=== PATIENT | male | born 1995 | race Caucasian/White ===

== ENCOUNTER 2018-02-13 19:42 | Emergency (ER) | payer SELFPAY ==
[~2018-02-13 19:42] MED LIST: CLIN300C99 PO; FAMO20TA28 PO; MAG-66 PO; TRAM-420 PO
[2018-02-13 19:45] VITALS: BP 118/75
[2018-02-13] MEDS ORDERED: ALB6.7R INH (19:48)
--- NOTE | 2018-02-13 19:48 | ER Report ---
History and Physical Time Seen By MD: 19:48 Hx. of Stated Complaint: LOWER LEFT TOOTH PAIN FOR A MONTH. NO INSURANCE FOR A DENTIST YET. LAST TYLENOL WAS TAKEN A COUPLE DAYS AGO HPI/ROS CHIEF COMPLAINT: Dental pain HISTORY OF PRESENT ILLNESS: This is a 23-year-old male who presents to the emergency department with dental pain. Patient states that over the last month he's had left lower molar dental pain. Patient states progressively getting worse, starting to feel pressure in his lower jaw, no fevers or chills. No nausea or vomiting. No difficulties with speech. The patient also states that he thinks he may have an STD, is requesting treatment and testing. States he was exposed to gonorrhea and/or Chlamydia. No penile discharge. REVIEW OF SYSTEMS: Respiratory: No cough, no dyspnea. Cardiovascular: No chest pain, no palpitations. Gastrointestinal: No vomiting, no abdominal pain. Musculoskeletal: No back pain. Dental: As above. Allergies: Coded Allergies: Penicillins (Verified Allergy, Intermediate, Rash, 02/13/18) Home Meds Active Scripts Amoxicillin/Pot Clav 875-125 Mg Tab (AUGMENTIN 875-125 TABLET) 1 Each Tablet, 1 TAB PO Q12H for 7 Days, #13 TAB Prov:DARLENE US CLIN NURSE-BC 02/13/18 Reported Medications Albuterol Sulfate (PROVENTIL HFA) 6.7 Gm Inh, 1-2 PUFF INH 3-4XD, INH 02/13/18 Discontinued Scripts Mag Hydrox/Al Hydrox/Simeth (MAALOX MAXIMUM STRENGTH SUSP) 355 Ml Oral.susp, 30 ML PO 1-3XD PRN for chest pain for 10 Days, #120 ML Prov:MARIA M PARRA MD 01/20/17 Famotidine (PEPCID) 20 Mg Tablet, 20 MG PO 1-2XD PRN for chest pain for 7 Days, #30 TAB Prov:MARIA M PARRA MD 01/20/17 Clindamycin Hcl (CLINDAMYCIN HCL) 300 Mg Capsule, 300 MG PO TID for infection, #30 CAPSULE TAKE 1 CAPSULE EVERY SIX HOURS Prov:JASKARAN GALVIN DO 01/15/17 Tramadol Hcl (TRAMADOL HCL) 50 Mg Tablet, 1 TAB PO Q6H PRN for PAIN, #12 MG TAKE ONE TO TWO TABLETS BY MOUTH EVERY FOUR TO SIX HOURS NEEDED Prov:JASKARAN GALVIN DO 01/15/17 Past Medical/Surgical History The patient has a past medical and surgical history of multiple dental caries, poor dentition, wears glasses, asthma, pancreatitis. Reviewed Nurses Notes: Yes Smoking Status: Current: Every Day Smoker Hx Substance Use Disorder: No Hx Alcohol Use: No Constitutional Vital Sign - Last 24 Hours 02/13/18 19:45 Temp 97.8 Pulse 78 Resp 14 B/P (MAP) 118/75 Pulse Ox 95 O2 Delivery Room Air Physical Exam General Appearance: The patient is alert, has no immediate need for airway protection and no current signs of toxicity. Eyes: Pupils equal and round no injection. Dental: Multiple dental caries, poor dentition throughout, multiple caps and fillings, several missing teeth on upper and lower. The left lower molar does have a filling however on the outside there is what appears to be a partially broken tooth for a tooth with severe erosion of the tooth. Mild erythema to the gumline no abscess noted. Gingivitis throughout. Respiratory: Chest is non tender, lungs are clear to auscultation. Cardiac: regular rate and rhythm. Gastrointestinal: Abdomen is soft and non tender, no masses, bowel sounds normal. Musculoskeletal: Neck: Neck is supple and non tender. Extremities have full range of motion and are non tender. Skin: No rashes or lesions. DIFFERENTIAL DIAGNOSIS: After history and physical exam differential diagnosis was considered for dental abscess, dental caries, tumor and gingivitis. Medical Decision Making Data Points Laboratory Hematology Test 02/13/18 20:15 Chemistry Test 02/13/18 20:15 ED Course/Re-evaluation ED Course The patient was admitted to a room. A history and physical were obtained. Differential diagnoses were considered. After examination the patient I did offer the patient and injection into the affected area to see if this would eliminate some of his discomfort, the patient is in agreement with this. I did a mental/incisive nerve block using approximately 0.5cc of lidocaine and bupivacaine mixture. Patient did have significant pain relief. I did tell the patient he must follow up with a dentist for definitive care and treatment of the tooth. Patient was given a sheet with the local dentists. The patient states the "allergy" he had to the penicillin was a small rash on his belly while in [facility], he has had Augmentin and Rocephin before without any reaction. The patient was given 250mg IM injection of Rocephin, 1g of Azithromycin and started on Augmentin. the patient was discharged home, had no other questions or concerns at this time. Decision to Disposition Date: Feb 13, 2018 Decision to Disposition Time: 20:35 Depart Departure Latest Vital Signs Vital Signs Date Time Temp Pulse Resp B/P (MAP) Pulse Ox O2 Delivery O2 Flow Rate FiO2 02/13/18 19:45 97.8 78 14 118/75 95 Room Air Impression: Primary Impression: Pain, dental Additional Impression: Exposure to sexually transmitted disease (STD) Condition: Improved Disposition: HOME OR SELF-CARE New Scripts Amoxicillin/Pot Clav 875-125 Mg Tab (AUGMENTIN 875-125 TABLET) 1 Each Tablet 1 TAB PO Q12H for 7 Days, #13 TAB Prov: DARLENE US 02/13/18 Patient Instructions: Dental Abscess (ED), Dental Caries (DC) Additional Instructions: For definitive treatment of the dental pain you will need to follow up with a dentist to fix the broken tooth and cavities. Be sure to take the Augmentin as prescribed, you were given your first dose tonight. Drink plenty of water. Get plenty of rest. You can also try Ibuprofen or Tylenol as needed for pain. Warm compress for pain. 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 Return to the ED for any other concerns or worsening symptoms. Please wear condoms with sexual activity. No sexual contact for at least one week. Problem Qualifiers DARLENE US Feb 13, 2018 19:48
[2018-02-13] MEDS ORDERED: cefTRIAXone 250 MG VIAL IM ONE ×2 (20:00→20:05)
[2018-02-13] MEDS ORDERED: AZITHROMYCIN 250 MG TAB PO ONE (20:00)
[2018-02-13] MEDS ORDERED: AMOX/CLAV 875 MG TAB PO ONE (20:00)
[2018-02-13] MEDS ORDERED: AMOX-559 PO ×2 (20:37→21:04)
[2018-02-13] MEDS ORDERED: oxyCODONE/ACETAMIN 5/325MG TH 2 TAB/BOTTLE PO ONE (21:25)
== END 2018-02-13 21:17 | disposition home or self-care (01) ==
LOC: ER 19:55
DX: K08.89 Other specified disorders of teeth and supporting structures (principal); Z20.2 Contact with and (suspected) exposure to infections with a predominantly sexual mode of transmission
CPT/HCPCS: 87491; 87591; 96372; 99283; J0696; Q0144